=== PATIENT | female | born 1945 | race Caucasian/White ===

== ENCOUNTER 2023-04-17 06:32 | Observation (INO) | payer MEDICARE, OTHER ==
[2023-04-17] MEDS ORDERED: Lactated Ringers 1,000 ML IV SCH (08:00)
[2023-04-17 08:29] LABS: HEMATOCRIT 36.3 % (34.3-46.0); HEMOGLOBIN 13.4 g/dL (11.2-15.5); MEAN CORPUSCULAR HEMOGLOBIN 29.1 pg (31.6-35.5); MEAN CORPUSCULAR HGB CONC 36.9 g/dL (31.6-35.5); MEAN CORPUSCULAR VOLUME 78.7 fL (81.4-99.0); RED BLOOD CELL COUNT 4.61 M/uL (3.77-5.24); WHITE BLOOD CELL COUNT,WBC 7.8 K/uL (3.2-11.0)
[2023-04-17 08:49] LABS: ALANINE AMINOTRANSFERASE,ALT 25 U/L (12-78); ALBUMIN 3.1 g/dL (3.4-5.0); ALKALINE PHOSPHATASE 58 U/L (46-116); ANION GAP 12.7 mmol/L (5.0-14.0); ASPARTATE AMNIOTRANSFERASE,AST 22 U/L (15-37); BLOOD UREA NITROGEN,BUN 15 mg/dL (7-18); CALCIUM 7.9 mg/dL (8.5-10.1); CARBON DIOXIDE,CO2 25 mmol/L (21-32); CHLORIDE,CL 86 mmol/L (100-108); EST CRCL DRUG DOSING (CG) 38.35 mL/min; ESTIMATED GFR 58 mL/min (>60); GLUCOSE RANDOM 102 mg/dL (74-106); MAGNESIUM 0.9 mg/dL (1.8-2.4); PHOSPHORUS 2.8 mg/dL (2.5-4.9); PROTEIN TOTAL,TP 6.3 g/dL (6.4-8.2); SODIUM,NA 121 mmol/L (140-148)
[2023-04-17 08:51] LABS: POTASSIUM,K 2.7 mmol/L (3.6-5.2)
[2023-04-17] MEDS: Magnesium Sulfate/Water 2 GM in Premix Bag 1 BAG IV SCH ×2 (09:30→11:34)
[2023-04-17] MEDS ORDERED: Potassium Chloride 10 MEQ in Premix Bag 1 BAG IV SCH (10:00)
[2023-04-17] MEDS ORDERED: Sodium Chloride 0.9% 1,000 ML IV SCH ×3 (10:00→21:30)
[2023-04-17] MEDS ORDERED: Enoxaparin 40 MG/0.4 ML Syringe SUBCUT ONE (10:30)
[2023-04-17] MEDS ORDERED: prednisoLONE Acetate 1% Ophth Susp 5 ML Bottle EYEBOTH SCH (10:45)
[2023-04-17 11:12] LABS: CORONAVIRUS COVID-19 NAA NEGATIVE (NEGATIVE); INFLUENZA A NAA NEGATIVE (NEGATIVE); INFLUENZA B NAA NEGATIVE (NEGATIVE); RESPIRATORY SYNCYTIAL VIR NAA NEGATIVE (NEGATIVE)
[2023-04-17] MEDS ORDERED: POTASSIUM CHLORIDE IV ONE (11:30)
[2023-04-17] MEDS ORDERED: SODIUM CHLORIDE 0.9% IV ONE (11:30)
[2023-04-17] MEDS ORDERED: LIDOCAINE 1% IV ONE (11:30)
[2023-04-17] MEDS ORDERED: HYDROXYZINE PAMOATE 25 MG PO SCH (14:00)
[2023-04-17] MEDS ORDERED: CEVIMELINE 30 MG PO SCH (14:00)
[2023-04-17] MEDS: hydrOXYzine HCl 25 MG Tab PO SCH ×2 (14:15→20:14)
[2023-04-17 15:14] LABS: MAGNESIUM 2.2 mg/dL (1.8-2.4); POTASSIUM,K 3.1 mmol/L (3.6-5.2)
[2023-04-17] MEDS: Potassium Chloride 10 MEQ in Premix Bag 1 BAG IV SCH ×4 (16:21→22:55)
[2023-04-17] MEDS ORDERED: Diclofenac Sodium 1% Gel 100 GM Tube TOP PRN (20:02)
[2023-04-17] MEDS: Gabapentin 300 MG Cap PO SCH (20:14)
[2023-04-18] MEDS: Magnesium Sulfate/Water 2 GM in Premix Bag 1 BAG IV SCH ×2 (00:12→05:50)
[2023-04-18 03:01] LABS: HEMATOCRIT 34.5 % (34.3-46.0); HEMOGLOBIN 12.5 g/dL (11.2-15.5); MEAN CORPUSCULAR HEMOGLOBIN 28.9 pg (31.6-35.5); MEAN CORPUSCULAR HGB CONC 36.2 g/dL (31.6-35.5); MEAN CORPUSCULAR VOLUME 79.9 fL (81.4-99.0); RED BLOOD CELL COUNT 4.32 M/uL (3.77-5.24); WHITE BLOOD CELL COUNT,WBC 6.5 K/uL (3.2-11.0)
[2023-04-18 03:12] LABS: CALCIUM 7.5 mg/dL (8.5-10.1); CREATININE 0.8 mg/dL (0.6-1.0); EST CRCL DRUG DOSING (CG) 47.94 mL/min; POTASSIUM,K 3.1 mmol/L (3.6-5.2)
[2023-04-18 03:13] LABS: ANION GAP 11.1 mmol/L (5.0-14.0)
[2023-04-18 03:22] LABS: MAGNESIUM 2.4 mg/dL (1.8-2.4); PHOSPHORUS 2.4 mg/dL (2.5-4.9)
[2023-04-18] MEDS ORDERED: Sodium Phosphate 15 mMole/5 ML SDV IV ONE (07:06)
[2023-04-18] MEDS ORDERED: Pantoprazole 40 MG Tab.CR PO SCH (07:30)
[2023-04-18] MEDS ORDERED: Potassium Chloride 20 MEQ Tab.ER PO ONE (08:00)
[2023-04-18] MEDS: Potassium Chloride 10 MEQ in Premix Bag 1 BAG IV SCH ×4 (08:05→11:19)
[2023-04-18] MEDS: hydrOXYzine HCl 25 MG Tab PO SCH ×2 (08:10→14:36)
[2023-04-18] MEDS: Gabapentin 300 MG Cap PO SCH (08:10)
[2023-04-18] MEDS ORDERED: Lisinopril 20 MG Tab PO SCH (09:00)
[2023-04-18] MEDS ORDERED: Non-Formulary Medication 1 Each (Omeprazole Magnesium [Prilosec Otc] 20 MG Tablet.Dr) PO SCH (09:00)
[2023-04-18] MEDS ORDERED: Atenolol 25 MG Tab PO SCH ×2 (09:00)
[2023-04-18 12:38] LABS: ANION GAP 8.6 mmol/L (5.0-14.0); CALCIUM 7.8 mg/dL (8.5-10.1); CREATININE 0.8 mg/dL (0.6-1.0); EST CRCL DRUG DOSING (CG) 47.94 mL/min; MAGNESIUM 2.5 mg/dL (1.8-2.4); PHOSPHORUS 2.9 mg/dL (2.5-4.9); POTASSIUM,K 3.6 mmol/L (3.6-5.2)
[2023-04-18] MEDS ORDERED: fentaNYL 50 MCG/ML SDV ONE (13:26)
[2023-04-18] MEDS ORDERED: Propofol 200 MG/20 ML SDV ONE ×2 (13:26→13:54)
== END 2023-04-18 16:20 | disposition home or self-care (01) ==
LOC: JP.SDS 06:32 → UNDOADMOB 09:55 → JP.ICU 09:55
PROVIDERS: ADMIT Student in an Organized Health Care Education/Training Program; ATTEND Student in an Organized Health Care Education/Training Program
DX: K29.70 Gastritis, unspecified, without bleeding (principal); K44.9 Diaphragmatic hernia without obstruction or gangrene; K21.9 Gastro-esophageal reflux disease without esophagitis; R19.7 Diarrhea, unspecified; E78.00 Pure hypercholesterolemia, unspecified; I10 Essential (primary) hypertension; E87.1 Hypo-osmolality and hyponatremia; E87.6 Hypokalemia; E83.42 Hypomagnesemia; Z79.899 Other long term (current) drug therapy
CPT/HCPCS: 0241U; 36415; 43239; 45331; 80048; 80053; 83735; 84100; 84132; 84295; 85027; 88305; 93005; 96361; 96365; 96366; 96367; 96368; 96372; 96376; A9270; G0378; J1650; J2704; J3010; J3475; J3480; J3490; J7030; J7050; J7120

== ENCOUNTER 2024-08-31 21:48 | Emergency (ER) | payer MEDICARE ==
[2024-08-31 23:15] LABS: BASOPHILS ABSOLUTE AUTO 0.04 K/uL (0.00-0.10); BASOPHILS PERCENT AUTO 0.4 % (0.1-1.3); EOSINOPHILS ABSOLUTE AUTO 0.05 K/uL (0.00-0.40); EOSINOPHILS PERCENT AUTO 0.5 % (0.0-5.4); HEMATOCRIT 29.8 % (34.3-46.0); HEMOGLOBIN 9.9 g/dL (11.2-15.5); IMMATURE GRAN ABSOLUTE AUTO 0.04 K/uL (0.00-0.23); IMMATURE GRAN PERCENT AUTO 0.4 % (0.0-0.7); MEAN CORPUSCULAR HEMOGLOBIN 25.8 pg (31.6-35.5); MEAN CORPUSCULAR HGB CONC 33.2 g/dL (31.6-35.5); MEAN CORPUSCULAR VOLUME 77.8 fL (81.4-99.0); MONOCYTES ABSOLUTE AUTO 1.17 K/uL (0.20-0.90); MONOCYTES PERCENT AUTO 12.3 % (3.3-12.6); NEUTROPHILS ABSOLUTE AUTO 6.29 K/uL (1.0-7.6); NEUTROPHILS PERCENT AUTO 66.4 % (40.0-78.1); PLATELET COUNT,PLT 312 K/uL (130-375); RED BLOOD CELL COUNT 3.83 M/uL (3.77-5.24); WHITE BLOOD CELL COUNT,WBC 9.5 K/uL (3.2-11.0)
[2024-08-31 23:42] LABS: A/G RATIO 0.9 (1.2-2.2); ALANINE AMINOTRANSFERASE,ALT 27 U/L (12-78); ALBUMIN 3.3 g/dL (3.4-5.0); ALKALINE PHOSPHATASE 82 U/L (46-116); ASPARTATE AMNIOTRANSFERASE,AST 27 U/L (15-37); BILIRUBIN TOTAL 0.3 mg/dL (0.2-1.0); BLOOD UREA NITROGEN,BUN 26 mg/dL (7-18); CALCIUM 9.6 mg/dL (8.5-10.1); CARBON DIOXIDE,CO2 26 mmol/L (21-32); CHLORIDE,CL 97 mmol/L (100-108); CREATININE 1.5 mg/dL (0.6-1.0); EST CRCL DRUG DOSING (CG) 24.05 mL/min; ESTIMATED GFR 35 mL/min (>60); GLUCOSE RANDOM 121 mg/dL (74-106); SODIUM,NA 135 mmol/L (140-148); TROPONIN I HIGH SENSITIVITY 26.5 pg/mL (<=60.3)
[2024-09-01] MEDS: Diltiazem 25 MG/5 ML SDV IVPUSH ONE (00:15)
[2024-09-01] MEDS: Sodium Chloride 0.9% 1,000 ML IV SCH (00:15)
[2024-09-01] MEDS: Sodium Chloride 0.9% 10 ML Syringe FLUSH PRN (00:28)
== END 2024-09-01 02:01 | disposition home or self-care (01) ==
LOC: JP.ED 21:48
DX: I48.91 Unspecified atrial fibrillation (principal); E78.00 Pure hypercholesterolemia, unspecified; I10 Essential (primary) hypertension; K21.9 Gastro-esophageal reflux disease without esophagitis; Z79.01 Long term (current) use of anticoagulants; Z79.899 Other long term (current) drug therapy
CPT/HCPCS: 36415; 80053; 84484; 85025; 93005; 96361; 96374; 99285; J3490; J7030; 93010; 99283

== ENCOUNTER 2024-09-01 14:38 | Emergency (ER) | payer MEDICARE ==
[2024-09-01] MEDS ORDERED: Sodium Chloride 0.9% 150 ML Bag IV ONE (15:00)
[2024-09-01 15:10] LABS: BASOPHILS ABSOLUTE AUTO 0.04 K/uL (0.00-0.10); BASOPHILS PERCENT AUTO 0.3 % (0.1-1.3); EOSINOPHILS ABSOLUTE AUTO 0.05 K/uL (0.00-0.40); EOSINOPHILS PERCENT AUTO 0.4 % (0.0-5.4); HEMOGLOBIN 9.2 g/dL (11.2-15.5); IMMATURE GRAN ABSOLUTE AUTO 0.05 K/uL (0.00-0.23); IMMATURE GRAN PERCENT AUTO 0.4 % (0.0-0.7); LYMPHOCYTES PERCENT AUTO 13.8 % (11.4-47.7); MEAN CORPUSCULAR HEMOGLOBIN 25.8 pg (31.6-35.5); MEAN CORPUSCULAR HGB CONC 32.9 g/dL (31.6-35.5); MEAN CORPUSCULAR VOLUME 78.7 fL (81.4-99.0); MONOCYTES ABSOLUTE AUTO 1.33 K/uL (0.20-0.90); MONOCYTES PERCENT AUTO 10.2 % (3.3-12.6); NEUTROPHILS ABSOLUTE AUTO 9.78 K/uL (1.0-7.6); NEUTROPHILS PERCENT AUTO 74.9 % (40.0-78.1); PLATELET COUNT,PLT 287 K/uL (130-375); RED BLOOD CELL COUNT 3.56 M/uL (3.77-5.24); WHITE BLOOD CELL COUNT,WBC 13.1 K/uL (3.2-11.0)
[2024-09-01] MEDS: Sodium Chloride 0.9% 1,000 ML IV ONE (15:10)
[2024-09-01] MEDS: Sodium Chloride 0.9% 10 ML Syringe FLUSH PRN (15:14)
[2024-09-01] MEDS: Atropine 0.1 MG/ML 10 ML Syringe IVPUSH ONE ×2 (15:14→15:27)
[2024-09-01] MEDS: Glucagon,Human Recombinant 1 MG Vial IM ONE (15:30)
[2024-09-01 15:49] LABS: CALCIUM 8.7 mg/dL (8.5-10.1); CREATININE 1.3 mg/dL (0.6-1.0); EST CRCL DRUG DOSING (CG) 26.48 mL/min; POTASSIUM,K 4.1 mmol/L (3.6-5.2); TSH ULTRASENSITIVE 2.269 uIU/mL (0.358-3.740)
[2024-09-01 15:51] LABS: ANION GAP 13.1 mmol/L (5.0-14.0)
[2024-09-01 15:52] LABS: TROPONIN I HIGH SENSITIVITY 351.7 pg/mL (<=60.3)
== END 2024-09-01 16:08 ==
LOC: JP.ED 14:38
DX: R00.1 Bradycardia, unspecified (principal); R79.89 Other specified abnormal findings of blood chemistry; E78.00 Pure hypercholesterolemia, unspecified; I10 Essential (primary) hypertension; K21.9 Gastro-esophageal reflux disease without esophagitis; Z79.899 Other long term (current) drug therapy; I48.91 Unspecified atrial fibrillation; Z79.01 Long term (current) use of anticoagulants
CPT/HCPCS: 36415; 80048; 80053; 83735; 83880; 84443; 84484; 85025; 93005; 93010; 96361; 96372; 96374; 99283; 99285; J0461; J1610; J3490; J7030

== ENCOUNTER 2024-10-05 11:23 | Emergency (ER) | payer MEDICARE, OTHER | END 2024-10-05 15:11 | disposition home or self-care (01) | LOC: JP.ED 11:23 | DX: I10 Essential (primary) hypertension (principal); E78.00 Pure hypercholesterolemia, unspecified; Z86.79 Personal history of other diseases of the circulatory system; Z79.899 Other long term (current) drug therapy | CPT/HCPCS: 99283 ==

== ENCOUNTER 2024-12-14 13:11 | Emergency (ER) | payer MEDICARE, OTHER ==
[2024-12-14 14:37] LABS: BASOPHILS ABSOLUTE AUTO 0.05 K/uL (0.00-0.10); BASOPHILS PERCENT AUTO 0.7 % (0.1-1.3); EOSINOPHILS ABSOLUTE AUTO 0.08 K/uL (0.00-0.40); EOSINOPHILS PERCENT AUTO 1.2 % (0.0-5.4); IMMATURE GRAN ABSOLUTE AUTO 0.01 K/uL (0.00-0.23); IMMATURE GRAN PERCENT AUTO 0.1 % (0.0-0.7); LYMPHOCYTES ABSOLUTE AUTO 1.98 K/uL (0.8-3.3); LYMPHOCYTES PERCENT AUTO 29.3 % (11.4-47.7); MONOCYTES ABSOLUTE AUTO 0.64 K/uL (0.20-0.90); MONOCYTES PERCENT AUTO 9.5 % (3.3-12.6); NEUTROPHILS ABSOLUTE AUTO 3.99 K/uL (1.0-7.6); NEUTROPHILS PERCENT AUTO 59.2 % (40.0-78.1); PLATELET COUNT,PLT 374 K/uL (130-375); RED BLOOD CELL COUNT 4.03 M/uL (3.77-5.24); WHITE BLOOD CELL COUNT,WBC 6.8 K/uL (3.2-11.0)
[2024-12-14 14:51] LABS: A/G RATIO 0.8 (1.2-2.2); ALANINE AMINOTRANSFERASE,ALT 24 U/L (12-78); ASPARTATE AMNIOTRANSFERASE,AST 27 U/L (15-37); BILIRUBIN TOTAL 0.3 mg/dL (0.2-1.0); BLOOD UREA NITROGEN,BUN 19 mg/dL (7-18); CARBON DIOXIDE,CO2 28 mmol/L (21-32); CHLORIDE,CL 97 mmol/L (100-108); CREATININE 1.1 mg/dL (0.6-1.0); EST CRCL DRUG DOSING (CG) 30.78 mL/min; ESTIMATED GFR 51 mL/min (>60); GLUCOSE RANDOM 109 mg/dL (74-106); POTASSIUM,K 4.1 mmol/L (3.6-5.2); PROTEIN TOTAL,TP 8.1 g/dL (6.4-8.2); SODIUM,NA 134 mmol/L (140-148)
[2024-12-14 14:55] LABS: APPEARANCE,URINE CLEAR (CLEAR); GLUCOSE,URINE NEGATIVE (NEGATIVE); OCCULT BLOOD,URINE NEGATIVE (NEGATIVE)
[2024-12-14 15:03] LABS: SQUAMOUS EPITHELIAL CELLS,UR RARE /HPF; UROTHELIAL CELLS,URINE NOT SEEN /HPF
== END 2024-12-14 17:03 | disposition home or self-care (01) ==
LOC: JP.ED 13:11
DX: R53.1 Weakness (principal); I48.91 Unspecified atrial fibrillation; I10 Essential (primary) hypertension; K21.9 Gastro-esophageal reflux disease without esophagitis; Z90.49 Acquired absence of other specified parts of digestive tract; Z79.01 Long term (current) use of anticoagulants; Z79.899 Other long term (current) drug therapy
CPT/HCPCS: 36415; 71046; 80053; 81001; 85025; 86618; 96360; 99285; J7030

== ENCOUNTER 2025-01-08 06:23 | Day surgery (SDC) | payer MEDICARE, OTHER ==
[2025-01-08] MEDS: Lactated Ringers 1,000 ML IV SCH (07:15)
[2025-01-08] MEDS ORDERED: fentaNYL 100 MCG/2 ML SDV ONE (07:28)
[2025-01-08] MEDS ORDERED: Propofol 200 MG/20 ML SDV ONE ×2 (07:28→07:51)
== END 2025-01-08 09:55 | disposition home or self-care (01) ==
LOC: JP.SDS 06:23
PROVIDERS: ATTEND Family Medicine
DX: K29.50 Unspecified chronic gastritis without bleeding (principal); K64.8 Other hemorrhoids; D50.9 Iron deficiency anemia, unspecified; I10 Essential (primary) hypertension; E78.00 Pure hypercholesterolemia, unspecified; Z79.01 Long term (current) use of anticoagulants; Z79.899 Other long term (current) drug therapy
CPT/HCPCS: 00813; 43239; 45378; J2704; J3010; J7120